=== PATIENT | female | born 1985 | race Caucasian/White ===

== ENCOUNTER 2025-04-16 10:38 | Emergency (ER) | payer MEDICAID ==
[~2025-04-16] VITALS: Ht 162.6 cm; Wt 106.0 kg
[2025-04-16 11:02] VITALS: O2SAT 100
[2025-04-16 12:00] LABS: BASOPHILS % 0.9 % (0.0-2.0); DIFFERENTIAL COMMENT 0; EOSINOPHILS % 2.9 % (0.0-5.0); HEMATOCRIT. 32.9 % (36.0-48.0); LYMPHOCYTES % 30.6 % (20.0-50.0); MEAN CORPUSCULAR HEMOGLOBIN 26.1 pg (28.0-32.0); MEAN CORPUSCULAR HGB CONC 33.5 g/dL (31.0-37.0); MEAN PLATELET VOLUME 8.9 fl (7.4-10.4); MONOCYTES % 4.3 % (2.0-8.0); NEUTROPHILS % 61.3 % (40.0-76.0); PLATELET 330 x1000/uL (130-400); RED BLOOD CELL COUNT 4.22 mill/uL (4.2-5.4); WHITE BLOOD COUNT 8.8 x1000/uL (4.5-11.0)
[2025-04-16 12:14] LABS: CHLORIDE 104 mEq/L (98-107); POTASSIUM 3.3 mEq/L (3.5-5.1); SODIUM 137 mEq/L (136-145)
[2025-04-16 12:15] LABS: CALCIUM 8.8 mg/dL (8.7-10.4); CARBON DIOXIDE 25 mEq/L (21-32)
[2025-04-16 12:20] LABS: GLUCOSE 120 mg/dL (70-105); UREA NITROGEN BLOOD 13 mg/dL (9-23)
[2025-04-16 12:26] LABS: TROPONIN I HIGH SENSITIVITY < 4 ng/L (3.0-34)
[2025-04-16 12:50] VITALS: TEMP 36.9
[2025-04-16 12:50] LABS: HCG SCREEN NEGATIVE
[2025-04-16] MEDS ORDERED: IBUP-2030 MT (14:06)
[2025-04-16] MEDS: KETOROLAC 30MG/ML VIAL IV ONE (14:12)
[2025-04-16 14:39] VITALS: BP 125/85; PULSE 75; RESP 12; O2SAT 100
== END 2025-04-16 15:00 | disposition home or self-care (01) ==
LOC: ER 10:38
DX: B34.9 Viral infection, unspecified (principal); I10 Essential (primary) hypertension; F32.A Depression, unspecified; Z79.899 Other long term (current) drug therapy; Z98.890 Other specified postprocedural states
CPT/HCPCS: 80048; 84703; 85025; 85379; 84484; 36415; 71045; 93005; 96374; 99285; J1885; Z7610

== ENCOUNTER 2025-09-22 08:11 | Emergency (ER) | payer MEDICAID ==
[~2025-09-22] VITALS: Ht 162.6 cm; Wt 105.0 kg
[~2025-09-22 08:11] MED LIST: IBUP-2030 MT
[2025-09-22 08:20] VITALS: TEMP 36.7; O2SAT 98
[2025-09-22 12:30] LABS: BASOPHILS % 0.6 % (0.0-2.0); EOSINOPHILS % 2.8 % (0.0-5.0); HEMATOCRIT. 32.5 % (36.0-48.0); HEMOGLOBIN. 10.7 g/dL (12.0-16.0); LYMPHOCYTES % 26.6 % (20.0-50.0); MEAN PLATELET VOLUME 8.1 fl (7.4-10.4); MONOCYTES % 4.4 % (2.0-8.0); NEUTROPHILS % 65.6 % (40.0-76.0); PLATELET 318 x1000/uL (130-400); RED BLOOD CELL COUNT 4.15 mill/uL (4.2-5.4); RED CELL DISTRIBUTION WIDTH 15.7 % (11.6-14.6)
[2025-09-22 12:37] LABS: HCG SCREEN NEGATIVE
[2025-09-22 12:43] LABS: CREATININE 0.8 mg/dL (0.6-1.0)
[2025-09-22 12:44] LABS: UREA NITROGEN BLOOD 13 mg/dL (9-23)
[2025-09-22 12:45] LABS: ASPARTATE AMINOTRANSFERASE 21 IU/L (<34)
[2025-09-22 12:46] LABS: BILIRUBIN DIRECT < 0.1 mg/dL (<=3.0); BILIRUBIN TOTAL 0.4 mg/dL (0.1-1.0); PROTEIN TOTAL 6.7 g/dL (6.0-8.3)
[2025-09-22] MEDS ORDERED: DICL387C TP (12:55)
[2025-09-22] MEDS ORDERED: ACET-2708 MT (12:55)
[2025-09-22] MEDS: KETOROLAC 30MG/ML VIAL IM ONE (13:24)
[2025-09-22 13:56] VITALS: BP 159/87; PULSE 79; RESP 16; O2SAT 100
== END 2025-09-22 13:56 | disposition home or self-care (01) ==
LOC: ER 08:11
DX: M25.572 Pain in left ankle and joints of left foot (principal); M25.571 Pain in right ankle and joints of right foot; I10 Essential (primary) hypertension; Z79.899 Other long term (current) drug therapy; X50.1XXA Overexertion from prolonged static or awkward postures, initial encounter; Y99.0 Civilian activity done for income or pay; Y93.89 Activity, other specified; Y92.89 Other specified places as the place of occurrence of the external cause
CPT/HCPCS: 99283; 80076; 80048; 81025; 84703; 83880; 83690; 83735; 85025; 85379; 36415; 96372; J1885